=== PATIENT | male | born 2000 | race Caucasian/White ===

== ENCOUNTER → 2023-08-30 | Outpatient (CLI) | payer MEDICAID ==
--- NOTE | 2023-08-30 13:05 | CT ---
EXAMINATION TYPE: CT sinus wo con DATE OF EXAM: 08/30/2023 COMPARISON: None HISTORY: 23-year-old male J01.90 ACUTE SINUSITIS, UNSPECIFIED M27.[address] DLP: 705.9 mGycm Automated exposure control for dose reduction was used. TECHNIQUE: Noncontrast axial views of the paranasal sinuses were obtained. Coronal and sagittal refor matted images were obtained. FINDINGS: PARANASAL SINUSES: Mild lobulated mucosal thickening floor of the left maxillary sinus. Additional scattered trace mucos al thickening throughout the ethmoid air cells. The right maxillary sinus, sphenoid sinus, and bifrontal sinuses appear well pneumatized. There is no air-fluid level. Reactive elham- osteogenesis is not seen. There is no destruction of the osseous vizcarra of the paranasal sinuses. THE NASAL CAVITY: The osteomeatal complexes are patent. Very slight leftward nasal septal deviation. The imaged brain and orbits are normal in appearance. Mastoid air cells and middle ear cavities are well pneumatized. Incidental small periapical lucencies involving the right maxillary second premolar and first molar. Reformatted images confirm above findings. IMPRESSION: 1. Scattered mild mucosal thickening ethmoid air cells. Mild lobulated mucosal thickening is also pre sent along the floor of the left maxillary sinus. 2. Slight leftward nasal septal deviation. 3. Incidental small periapical lucencies involving the right maxillary second premolar and first mola r.
== END | disposition home or self-care (01) ==
LOC: RADCTMAIN 12:24
PROVIDERS: ATTEND Internal Medicine Critical Care Medicine
DX: J01.90 Acute sinusitis, unspecified (principal); M27.2 Inflammatory conditions of jaws; J34.89 Other specified disorders of nose and nasal sinuses; J34.2 Deviated nasal septum
CPT/HCPCS: 70486